=== PATIENT | female | born 1945 | race Caucasian/White ===

== ENCOUNTER 2017-10-17 05:24 | Day surgery (SDC) | payer MEDICARE ==
[2017-10-17] MEDS ORDERED: Dextrose 5%-Lactated Ringers 1,000 ML IV SCH (07:15)
[2017-10-17] MEDS ORDERED: Propofol 200 MG/20 ML SDV ONE (07:18)
[2017-10-17] MEDS ORDERED: fentaNYL 100 MCG/2 ML SDV ONE (07:18)
[2017-10-17 08:17] VITALS: BP 146/74
--- NOTE | 2017-11-18 10:10 | OR ---
DATE OF PROCEDURE: 10/17/2017 PREOPERATIVE DIAGNOSIS: History of gastric bezoar. POSTOPERATIVE DIAGNOSES: 1. No remaining gastric bezoar. 2. Mild antral gastritis. OPERATIVE PROCEDURES: Esophagogastroduodenoscopy with antral biopsies for CLOtest. ANESTHESIA: IV sedation. INDICATION FOR PROCEDURE: The patient is a 72-year-old with history of recently diagnosed bezoar. She has been on an anti-bezoar diet. The plan is to proceed with an upper endoscopy to ascertain whether or not the bezoar has now cleared. Potential risks of the procedure including bleeding, infection, perforation and such were reviewed, and the patient wishes to proceed. DETAILS OF PROCEDURE: The patient was taken to the operating room and placed in a left lateral decubitus position. IV sedation was administered, after which the upper GI endoscope was passed orally through the length of the esophagus and the stomach with retroflexion view of the fundus, thereafter through the pyloric channel, roughly at the junction of the third and fourth portions of the duodenum. The findings included a normal hypopharynx, larynx, upper esophageal sphincter, and esophageal body. At the EG junction, no significant inflammation was noted. A small hiatal hernia was present. Within the stomach, the previously noted bezoar now had entirely cleared. There was some small amount of retained bile, some mild antral gastritis, but without erosions or ulcers present. The pyloric channel and the visualized portion of the duodenum were unremarkable. The scope was then withdrawn into the antrum where biopsies were obtained from the CLOtest. No bleeding from the biopsy sites was seen and the procedure then concluded. The patient was taken to the recovery room in a satisfactory condition. The plan will be to have the patient continue on the present management in terms of anti- bezoar diet and acid blockade. Miguel Mills MD /[id number]
== END 2017-10-17 09:30 | disposition home or self-care (01) ==
LOC: JP.SDS 05:24
PROVIDERS: ATTEND Surgery
DX: K29.50 Unspecified chronic gastritis without bleeding (principal); E11.22 Type 2 diabetes mellitus with diabetic chronic kidney disease; I12.9 Hypertensive chronic kidney disease with stage 1 through stage 4 chronic kidney disease, or unspecified chronic kidney disease; N18.9 Chronic kidney disease, unspecified; I25.10 Atherosclerotic heart disease of native coronary artery without angina pectoris; F32.9 Major depressive disorder, single episode, unspecified; E66.9 Obesity, unspecified; K21.9 Gastro-esophageal reflux disease without esophagitis; J44.9 Chronic obstructive pulmonary disease, unspecified; G47.33 Obstructive sleep apnea (adult) (pediatric); Z88.1 Allergy status to other antibiotic agents; Z88.8 Allergy status to other drugs, medicaments and biological substances; Z87.891 Personal history of nicotine dependence
CPT/HCPCS: 43239; 82962; 87081; J2704; J3010; J7042

== ENCOUNTER 2017-11-04 10:32 | Emergency (ER) | payer MEDICARE ==
--- NOTE | 2017-11-04 13:31 | CR ---
Two-view chest Comparison: 29 October 2016. There is mild cardiac enlargement. Again noted is fullness of the right hilum. The finding is unchang ed. There is likely dilatation of the right pulmonary artery. There are no focal infiltrates. There a re no effusions. Pression: 1. Stable exam. No acute findings.
[2017-11-04] MEDS ORDERED: Sodium Chloride 0.9% 10 ML Syringe FLUSH PRN (14:51)
[2017-11-04] MEDS ORDERED: Furosemide 40 MG/4 ML VIAL IVPUSH ONE (14:52)
[2017-11-04 15:13] VITALS: BP 152/61
--- NOTE | 2017-11-04 15:16 | EDM.PDOC ---
ED HPI GENERAL MEDICAL PROBLEM - General Chief Complaint: Respiratory Problem Stated Complaint: DIFFICULT TIME BREATHING Time Seen by Provider: 11/04/17 15:11 Source of Information: Reports: Patient, Family History Limitations: Reports: No Limitations - History of Present Illness INITIAL COMMENTS - FREE TEXT/NARRATIVE: pt arrived with pain increasing sob. She feels like she has alot of fluid around her nmiddle. She has been off of the bumex for about 3 weeks because her creatnine was high. This has come down to 1.6 which is a vas improvement. Onset: Gradual, Other ( Pt has gained 5-9 lbs. ) Duration: Hour(s): Location: Reports: Chest Associated Symptoms: Reports: Cough, Shortness of Breath denies Pain Score (Numeric/FACES): 0 - Related Data Allergies Allergy/AdvReac Type Severity Reaction Status Date / Time doxycycline Allergy Unknown Cannot Verified 11/04/17 11:09 Remember duloxetine HCl Allergy Unknown Cannot Verified 11/04/17 11:09 [From Cymbalta] Remember atorvastatin Allergy Muscle Verified 11/04/17 11:09 Aches ciprofloxacin Allergy Nausea Verified 11/04/17 11:09 Hqenhoj-Kqv-Pgi Reductase Allergy Muscle Verified 11/04/17 11:09 Inhibitor Aches metoclopramide HCl AdvReac Intermediate Irritabilit Verified 11/04/17 11:09 [From Reglan] y meperidine HCl [From Demerol] AdvReac Unknown Nausea and Verified 11/04/17 11:09 Vomiting Home Meds: Home Meds Cholecalciferol (Vitamin D3) [Vitamin D3] 5,000 units PO WEEKLY 05/29/13 [ History] Metoprolol Tartrate 50 mg PO BID 05/29/13 [History] Sulfamethoxazole/Trimethoprim [Bactrim 400-80 MG] 1 each PO MOWEFR 05/29/13 [ History] rOPINIRole [Requip] 0.5 mg PO BEDTIME 05/29/13 [History] Acetaminophen [Acetaminophen Extra Strength] 1,000 mg PO Q12H PRN 08/13/13 [ History] Calcium Carbonate/Vitamin D3 [Calcium 500-Vit D3 200 Caplet] 1 tab PO TID [History] Omeprazole 40 mg PO BID 12/15/14 [History] QUEtiapine Fumarate [Seroquel] 50 mg PO BEDTIME PRN 02/15/15 [History] Aspirin [Children's Aspirin] 81 mg PO DAILY 04/21/16 [History] Cetirizine [ZyrTEC] 10 mg PO DAILY 04/21/16 [History] Clotrimazole [Clotrimazole 1%] 1 applic TOP BID 04/21/16 [History] Prednisone [IJD: Prednisone] 5 mg PO DAILY 04/21/16 [History] Fluticasone Propionate [Flonase] 2 puff NS DAILY PRN 07/06/16 [History] Mycophenolate Mofetil [Cellcept] 1,000 mg PO BID 07/06/16 [History] amLODIPine [Norvasc] 5 mg PO DAILY 07/06/16 [History] Azithromycin 250 mg PO DAILY 10/29/16 [History] cycloSPORINE [Cyclosporine] 100 mg PO BID 10/29/16 [History] Ondansetron HCl [Zofran] 4 mg PO Q8H PRN 03/07/17 [History] Triamcinolone Acetonide [Kenalog 0.1% Crm] 1 applic TOP QID 03/07/17 [History] Cholecalciferol (Vitamin D3) [Vitamin D3] 2 cap PO BID 10/15/17 [History] Escitalopram [Lexapro] 10 mg PO DAILY 10/15/17 [History] Famotidine 40 mg PO BEDTIME 10/15/17 [History] Insulin Glarg,Human.Rec.Analog [Lantus] 30 unit SUBCUT BEDTIME 10/15/17 [History ] Insulin Lispro [HumaLOG] 5 unit SQ TID 11/04/17 [History] Past Medical History HEENT History: Reports: Cataract, Glaucoma, Other (See Below) Other HEENT History: wears glasses Cardiovascular History: Reports: Heart Failure, Hypertension Respiratory History: Reports: COPD, Sleep Apnea, Other (See Below) Other Respiratory History: lung transplant 2011. 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 when hospitalized at [facility] (2013) Psychiatric History: Reports: Depression Endocrine/Metabolic History: Reports: Diabetes, Type II, IDDM, Osteoporosis, Vitamin D Deficiency Immunologic History: Reports: Solid Organ Transplant Other Immunologic History: lung right side Oncologic (Cancer) History: Reports: Other (See Below) 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 - Infectious Disease History Infectious Disease History: Reports: Chicken Pox, Measles, Meningitis - Past Surgical History HEENT Surgical History: Reports: Cataract Surgery, Other (See Below) Other HEENT Surgeries/Procedures: surgery for glaucoma, retinal repair Cardiovascular Surgical History: Reports: None Respiratory Surgical History: Reports: Other (See Below) Other Respiratory Surgeries/Procedures: lung transplant right GI Surgical History: Reports: Appendectomy, Cholecystectomy, Colonoscopy, EGD, Hernia, Abdominal, Hernia Repair/Other, Quinn Fundoplication, Small Bowel Female Surgical History: Reports: Hysterectomy, Other (See Below) Other Female Surgeries/Procedures: bladder suspension Musculoskeletal Surgical History: Reports: Other (See Below) Other Musculoskeletal Surgeries/Procedures:: left hip pins due to fall fracture 2012 Dermatological Surgical History: Reports: Other (See Below) Social & Family History - Tobacco Use Smoking Status *Q: Former Smoker Years of Tobacco use: 40 Packs/Tins Daily: 1 Used Tobacco, but Quit: Yes Month Tobacco Last Used: sep Second Hand Smoke Exposure: No - Caffeine Use Caffeine Use: Reports: Coffee, Soda - Alcohol Use Days Per Week of Alcohol Use: 0 - Recreational Drug Use Recreational Drug Use: No ED ROS GENERAL - Review of Systems Review Of Systems: See Below Constitutional: Reports: No Symptoms HEENT: Reports: No Symptoms Respiratory: Reports: Shortness of Breath, Other (pt had a rt lung transplant in 2011. She is having increased sob since the bumex was stopped. ) Cardiovascular: Reports: No Symptoms Endocrine: Reports: No Symptoms GI/Abdominal: Reports: No Symptoms : Reports: No Symptoms Musculoskeletal: Reports: No Symptoms, Other ( ankles are swollen. ) Skin: Reports: No Symptoms ED EXAM, GENERAL - Physical Exam Exam: See Below Free Text/Narrative:: pt has fluid retention around her middle and she has increased sob. Exam Limited By: No Limitations General Appearance: Alert, Anxious, Moderate Distress Ears: Normal TMs Nose: Normal Inspection Throat/Mouth: Normal Inspection Head: Atraumatic Neck: Normal Inspection Respiratory/Chest: Decreased Breath Sounds, Rales Cardiovascular: Regular Rate, Rhythm GI/Abdominal: Soft, Non-Tender, Other (pt feels mildly distended. ) (Female) Exam: Deferred Rectal (Female) Exam: Deferred Back Exam: Normal Inspection Extremities: Other (plus 1-2 pitting edema, ) Neurological: Alert, Oriented, Normal Cognition Psychiatric: Anxious Course - Vital Signs Last Recorded V/S: Last Vital Signs Temp 37.5 C 11/04/17 14:22 Pulse 64 11/04/17 15:11 Resp 12 11/04/17 15:11 BP 152/61 H 11/04/17 15:11 Pulse Ox 95 11/04/17 15:11 - Orders/Labs/Meds Orders: Active Orders 24 hr Category Date Time Status Sodium Chloride 0.9% [Saline Flush] Med 11/04/17 14:51 Active 10 ml FLUSH ASDIRECTED PRN Saline Lock Insert [OM.PC] Routine Oth 11/04/17 14:51 Ordered Medication Orders Sodium Chloride (Saline Flush) 10 ml FLUSH ASDIRECTED PRN PRN Reason: Keep Vein Open Last Admin: 11/04/17 15:18 Dose: 10 ml Labs: Laboratory Tests 11/04/17 11/04/17 Range/Units 12:30 12:30 WBC 8.6 (4.5-11.0) K/uL RBC 3.69 (3.30-5.50) M/uL Hgb 9.6 L (12.0-15.0) g/dL Hct 31.1 L (36.0-48.0) % MCV 84 (80-98) fL MCH 26 L (27-31) pg MCHC 31 L (32-36) % Plt Count 242 (150-400) K/uL Neut % (Auto) 74 H (36-66) % Lymph % (Auto) 15 L (24-44) % [place] % (Auto) 10 H (2-6) % Eos % (Auto) 1 L (2-4) % Baso % (Auto) 0 (0-1) % Sodium 139 L (140-148) mmol/L Potassium 4.3 (3.6-5.2) mmol/L Chloride 107 (100-108) mmol/L Carbon Dioxide 23 (21-32) mmol/L Anion Gap 13.3 (5.0-14.0) mmol/L BUN 24 H (7-18) mg/dL Creatinine 1.6 H (0.6-1.0) mg/dL Est Cr Clr Drug Dosing 23.98 mL/min Estimated GFR (MDRD) 32 L (>60) Glucose 166 H (74-106) mg/dL Calcium 8.6 (8.5-10.1) mg/dL Total Bilirubin 0.7 (0.2-1.0) mg/dL AST 12 L (15-37) U/L ALT 28 (12-78) U/L Alkaline Phosphatase 66 (46-116) U/L NT-Pro-B Natriuret Pep 694 H (5-125) pg/mL Total Protein 5.5 L (6.4-8.2) g/dL Albumin 3.1 L (3.4-5.0) g/dL Globulin 2.4 (2.3-3.5) g/dL Albumin/Globulin Ratio 1.3 (1.2-2.2) Meds: Medications Generic Name Dose Route Start Last Admin Trade Name Freq PRN Reason Stop Dose Admin Sodium Chloride 10 ml 11/04/17 14:51 11/04/17 15:18 Saline Flush FLUSH 10 ml ASDIRECTED PRN Administration Keep Vein Open Discontinued Medications Generic Name Dose Route Start Last Admin Trade Name Freq PRN Reason Stop Dose Admin Furosemide 60 mg 11/04/17 14:52 11/04/17 15:08 Lasix IVPUSH 11/04/17 14:53 60 mg ONETIME ONE Administration - Re-Assessments/Exams Free Text/Narrative Re-Assessment/Exam: 11/04/17 15:17 chest xray was unchanged. Her bnp is elevated. The pt was given lasix 60mg iv. 11/04/17 16:47 pt has put out 600cc of urine. She is comfortable with the o2 in place. Departure - Departure Time of Disposition: 16:47 Disposition: Home, Self-Care 01 Condition: Fair Clinical Impression: CHF (congestive heart failure), History of lung transplant - Discharge Information Referrals: Francis Colon MD [Primary Care Provider] - Forms: ED Department Discharge Care Plan Goals: rtc if increased sob. Bumex 1 mg tomorrow, appt with Dr Colon in [place] with Dr Colon. Pt will obtain further ordwers at that point. - My Orders Last 24 Hours: My Active Orders 11/04/17 14:51 Sodium Chloride 0.9% [Saline Flush] 10 ml FLUSH ASDIRECTED PRN Saline Lock Insert [OM.PC] Routine - Assessment/Plan Last 24 Hours: My Active Orders 11/04/17 14:51 Sodium Chloride 0.9% [Saline Flush] 10 ml FLUSH ASDIRECTED PRN Saline Lock Insert [OM.PC] Routine
== END 2017-11-04 17:30 | disposition home or self-care (01) ==
LOC: JP.ED 10:32
DX: I13.0 Hypertensive heart and chronic kidney disease with heart failure and stage 1 through stage 4 chronic kidney disease, or unspecified chronic kidney disease (principal); I15.0 Renovascular hypertension; E11.22 Type 2 diabetes mellitus with diabetic chronic kidney disease; N18.9 Chronic kidney disease, unspecified; E11.40 Type 2 diabetes mellitus with diabetic neuropathy, unspecified; Z88.1 Allergy status to other antibiotic agents; Z88.8 Allergy status to other drugs, medicaments and biological substances; Z79.82 Long term (current) use of aspirin; Z79.899 Other long term (current) drug therapy; Z79.4 Long term (current) use of insulin; Z94.2 Lung transplant status
CPT/HCPCS: 36415; 71046; 80053; 83880; 85025; 96374; 99285; J1940; J7050; 99284

== ENCOUNTER 2021-02-01 13:36 | Emergency (ER) | payer MEDICARE ==
[2021-02-01 14:06] VITALS: BP 147/96; PULSE 69
--- NOTE | 2021-02-01 14:28 | EDM.PDOC ---
ED HPI GENERAL MEDICAL PROBLEM - General Chief Complaint: Back Pain or Injury Stated Complaint: BACK PAIN Time Seen by Provider: 02/01/21 14:22 Source of Information: Reports: Patient History Limitations: Reports: No Limitations Lower Back Pain Score (Numeric/FACES): 10 - Related Data Allergies Allergy/AdvReac Type Severity Reaction Status Date / Time doxycycline Allergy Unknown Cannot Verified 02/01/21 13:54 Remember duloxetine HCl Allergy Unknown Cannot Verified 02/01/21 13:54 [From Cymbalta] Remember atorvastatin Allergy Muscle Verified 02/01/21 13:54 Aches ciprofloxacin Allergy Nausea Verified 02/01/21 13:54 Jwyvcft-Eac-Usw Reductase Allergy Muscle Verified 02/01/21 13:54 Inhibitor Aches metoclopramide HCl AdvReac Intermediate Irritabilit Verified 02/01/21 13:54 [From Reglan] y meperidine HCl [From Demerol] AdvReac Unknown Nausea and Verified 02/01/21 13:54 Vomiting Home Meds: Home Meds Metoprolol Tartrate 75 mg PO BID 05/29/13 [History] Sulfamethoxazole/Trimethoprim [Bactrim 400-80 MG] 1 each PO MOWEFR 05/29/13 [History] rOPINIRole [Requip] 0.25 mg PO BEDTIME 05/29/13 [History] QUEtiapine Fumarate [Seroquel] 50 mg PO BEDTIME 02/15/15 [History] Aspirin [Children's Aspirin] 81 mg PO DAILY 04/21/16 [History] Cetirizine [ZyrTEC] 10 mg PO DAILY 04/21/16 [History] Prednisone [IJD: Prednisone] 5 mg PO DAILY 04/21/16 [History] Fluticasone Propionate [Flonase] 2 spray NS DAILY PRN 07/06/16 [History] amLODIPine [Norvasc] 5 mg PO DAILY 07/06/16 [History] cycloSPORINE [Cyclosporine] 100 mg PO ACBREAKFAST 10/29/16 [History] Famotidine 40 mg PO BEDTIME 10/15/17 [History] Bumetanide [Bumex] 1 tab PO DAILY 02/19/18 [History] Calcium Carbonate/Vitamin D3 [Calcium 500 + Vit D 400] 1 tab PO BID 02/19/18 [History] Isosorbide Mononitrate [Imdur] 30 mg PO DAILY 02/19/18 [History] Nitroglycerin [Nitrostat] 1 tab SL ASDIRECTED PRN 02/19/18 [History] Ascorbic Acid [Vitamin C] 250 mg PO DAILY 08/25/19 [History] Denosumab [Xgeva] 60 mg SQ .EVERY 6 MONTHS 08/25/19 [History] Dulaglutide [Trulicity] 0.5 ml SQ WEEKLY 08/25/19 [History] Ferrous Sulfate 325 mg PO DAILY 08/25/19 [History] Hydrocortisone 1 applic TOP BID 08/25/19 [History] Ketoconazole [Nizoral 2% Crm] 1 applic TOP ASDIRECTED 08/25/19 [History] Lactobacillus Combo No.10 [Probiotic] 1 each PO DAILY 08/25/19 [History] Melatonin 6 mg PO DAILY 08/25/19 [History] Multivitamin with Minerals [Multiple Vitamin] 1 tab PO DAILY 08/25/19 [History] Mycophenolate Sodium [Mycophenolic Acid] 540 mg PO BID 08/25/19 [History] Prochlorperazine [Compazine] 5 mg PO Q6H PRN 08/25/19 [History] Sertraline [Zoloft] 25 mg PO DAILY 08/25/19 [History] cycloSPORINE, Modified [Cyclosporine Modified] 75 mg PO WITHDINNER 08/25/19 [History] traMADol [Ultram] 50 mg PO Q6H PRN 10/13/20 [History] Past Medical History HEENT History: Reports: Cataract, Glaucoma, Other (See Below) Other HEENT History: wears glasses Cardiovascular History: Reports: Heart Failure, Hypertension, Stents Respiratory History: Reports: COPD, Sleep Apnea, Other (See Below) Other Respiratory History: lung transplant 2011. home bipap with O2 Gastrointestinal History: Reports: None Genitourinary History: Reports: Chronic Renal Insuffiency, UTI, Recurrent [employer] History: Reports: , Other (See Below) Other [employer] History: hysterectomy Musculoskeletal History: Reports: Other (See Below) Other Musculoskeletal History: R hip pain, history of fracture vertebrae and fractured clavicle. left hip pain. 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 Dermatologic History: Reports: None - Infectious Disease History Infectious Disease History: Reports: Chicken Pox, Measles, Meningitis - Past Surgical History Head Surgeries/Procedures: Reports: None HEENT Surgical History: Reports: Cataract Surgery, Other (See Below) Other HEENT Surgeries/Procedures: surgery for glaucoma, retinal repair Cardiovascular Surgical History: Reports: None Respiratory Surgical History: Reports: None, Other (See Below) Other Respiratory Surgeries/Procedures: lung transplant right GI Surgical History: Reports: Appendectomy, Cholecystectomy, Colonoscopy, EGD, Hernia, Abdominal, Hernia Repair/Other, Quinn Fundoplication, Small Bowel Other GI Surgeries/Procedures: hx of bezoar Female Surgical History: Reports: Hysterectomy, Other (See Below) Other Female Surgeries/Procedures: bladder suspension Endocrine Surgical History: Reports: None Neurological Surgical History: Reports: None Musculoskeletal Surgical History: Reports: Other (See Below) Other Musculoskeletal Surgeries/Procedures:: left hip pins due to fall fracture 2012 Dermatological Surgical History: Reports: Other (See Below) Social & Family History - Tobacco Use Tobacco Use Status *Q: Never Tobacco User - Caffeine Use Caffeine Use: Reports: Coffee - Recreational Drug Use Recreational Drug Use: No Course - Vital Signs Last Recorded V/S: Last Vital Signs Temp 98.4 F 02/01/21 14:05 Pulse 69 02/01/21 14:05 Resp 16 02/01/21 14:05 BP 147/96 H 02/01/21 14:05 Pulse Ox 91 L 02/01/21 14:05 Departure - Discharge Information Referrals: Carlos Rutherford MD [Primary Care Provider] - Sepsis Event Note (ED) - Evaluation Sepsis Screening Result: No Definite Risk - Focused Exam Vital Signs: Vital Signs Temp Pulse Resp BP Pulse Ox 02/01/21 14:05 98.4 F 69 16 147/96 H 91 L
--- NOTE | 2021-02-01 14:31 | EDM.PDOC ---
ED HPI GENERAL MEDICAL PROBLEM - General Chief Complaint: Back Pain or Injury Stated Complaint: BACK PAIN Time Seen by Provider: 02/01/21 14:22 Source of Information: Reports: Patient, Family History Limitations: Reports: No Limitations - History of Present Illness INITIAL COMMENTS - FREE TEXT/NARRATIVE: 75-year-old female woke up yesterday morning and was sitting up in bed when she felt sudden pain in her lower back. For the past day and a half it has been persistent, intense, hurts to move but is not affecting her urination, bowels, no radiation of symptoms down the legs and no actual trauma. It feels better if she is still. She is taking tramadol but it is not helping. Onset: Sudden Duration: Hour(s): (16 hours ago) Location: Reports: Back (Lumbar back) Associated Symptoms: Reports: No Other Symptoms Lower Back Pain Score (Numeric/FACES): 10 - Related Data Allergies Allergy/AdvReac Type Severity Reaction Status Date / Time doxycycline Allergy Unknown Cannot Verified 02/01/21 13:54 Remember duloxetine HCl Allergy Unknown Cannot Verified 02/01/21 13:54 [From Cymbalta] Remember atorvastatin Allergy Muscle Verified 02/01/21 13:54 Aches ciprofloxacin Allergy Nausea Verified 02/01/21 13:54 [id number] Reductase Allergy Muscle Verified 02/01/21 13:54 Inhibitor Aches metoclopramide HCl AdvReac Intermediate Irritabilit Verified 02/01/21 13:54 [From Reglan] y meperidine HCl [From Demerol] AdvReac Unknown Nausea and Verified 02/01/21 13:54 Vomiting Home Meds: Home Meds Metoprolol Tartrate 75 mg PO BID 05/29/13 [History] Sulfamethoxazole/Trimethoprim [Bactrim 400-80 MG] 1 each PO MOWEFR 05/29/13 [History] rOPINIRole [Requip] 0.25 mg PO BEDTIME 05/29/13 [History] QUEtiapine Fumarate [Seroquel] 50 mg PO BEDTIME 02/15/15 [History] Aspirin [Children's Aspirin] 81 mg PO DAILY 04/21/16 [History] Cetirizine [ZyrTEC] 10 mg PO DAILY 04/21/16 [History] Prednisone [IJD: Prednisone] 5 mg PO DAILY 04/21/16 [History] Fluticasone Propionate [Flonase] 2 spray NS DAILY PRN 07/06/16 [History] amLODIPine [Norvasc] 5 mg PO DAILY 07/06/16 [History] cycloSPORINE [Cyclosporine] 100 mg PO ACBREAKFAST 10/29/16 [History] Famotidine 40 mg PO BEDTIME 10/15/17 [History] Bumetanide [Bumex] 1 tab PO DAILY 02/19/18 [History] Calcium Carbonate/Vitamin D3 [Calcium 500 + Vit D 400] 1 tab PO BID 02/19/18 [History] Isosorbide Mononitrate [Imdur] 30 mg PO DAILY 02/19/18 [History] Nitroglycerin [Nitrostat] 1 tab SL ASDIRECTED PRN 02/19/18 [History] Ascorbic Acid [Vitamin C] 250 mg PO DAILY 08/25/19 [History] Denosumab [Xgeva] 60 mg SQ .EVERY 6 MONTHS 08/25/19 [History] Dulaglutide [Trulicity] 0.5 ml SQ WEEKLY 08/25/19 [History] Ferrous Sulfate 325 mg PO DAILY 08/25/19 [History] Hydrocortisone 1 applic TOP BID 08/25/19 [History] Ketoconazole [Nizoral 2% Crm] 1 applic TOP ASDIRECTED 08/25/19 [History] Lactobacillus Combo No.10 [Probiotic] 1 each PO DAILY 08/25/19 [History] Melatonin 6 mg PO DAILY 08/25/19 [History] Multivitamin with Minerals [Multiple Vitamin] 1 tab PO DAILY 08/25/19 [History] Mycophenolate Sodium [Mycophenolic Acid] 540 mg PO BID 08/25/19 [History] Prochlorperazine [Compazine] 5 mg PO Q6H PRN 08/25/19 [History] Sertraline [Zoloft] 25 mg PO DAILY 08/25/19 [History] cycloSPORINE, Modified [Cyclosporine Modified] 75 mg PO WITHDINNER 08/25/19 [History] traMADol [Ultram] 50 mg PO Q6H PRN 10/13/20 [History] Past Medical History HEENT History: Reports: Cataract, Glaucoma, Other (See Below) Other HEENT History: wears glasses Cardiovascular History: Reports: Heart Failure, Hypertension, Stents Respiratory History: Reports: COPD, Sleep Apnea, Other (See Below) Other Respiratory History: lung transplant 2011. 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 left hip pain. 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 Dermatologic History: Reports: None - Infectious Disease History Infectious Disease History: Reports: Chicken Pox, Measles, Meningitis - Past Surgical History Head Surgeries/Procedures: Reports: None HEENT Surgical History: Reports: Cataract Surgery, Other (See Below) Other HEENT Surgeries/Procedures: surgery for glaucoma, retinal repair Cardiovascular Surgical History: Reports: None Respiratory Surgical History: Reports: None, Other (See Below) Other Respiratory Surgeries/Procedures: lung transplant right GI Surgical History: Reports: Appendectomy, Cholecystectomy, Colonoscopy, EGD, Hernia, Abdominal, Hernia Repair/Other, Quinn Fundoplication, Small Bowel Other GI Surgeries/Procedures: hx of bezoar Female Surgical History: Reports: Hysterectomy, Other (See Below) Other Female Surgeries/Procedures: bladder suspension Endocrine Surgical History: Reports: None Neurological Surgical History: Reports: None Musculoskeletal Surgical History: Reports: Other (See Below) Other Musculoskeletal Surgeries/Procedures:: left hip pins due to fall fracture 2012 Dermatological Surgical History: Reports: Other (See Below) Social & Family History - Tobacco Use Tobacco Use Status *Q: Never Tobacco User - Caffeine Use Caffeine Use: Reports: Coffee - Recreational Drug Use Recreational Drug Use: No ED ROS GENERAL - Review of Systems Review Of Systems: See Below Constitutional: Denies: Fever HEENT: Reports: No Symptoms Respiratory: Reports: Other (Chronic COPD, lung transplant patient. Respiratory symptoms are stable) GI/Abdominal: Denies: Nausea, Vomiting Skin: Reports: Bruising (Bruises easily) Neurological: Reports: Other (No lower extremity radiculopathy). Denies: Headache Psychiatric: Reports: No Symptoms ED EXAM,LOWER BACK PAIN/INJURY - Physical Exam Exam: See Below Exam Limited By: No Limitations General Appearance: Alert, No Apparent Distress, Other (Uncomfortable when moving) Head: Atraumatic Neck: Supple, Non-Tender Respiratory/Chest: Other (Decreased breath sounds, especially on the left but no rales rhonchi or wheezes) Cardiovascular: Regular Rate, Rhythm Back Exam: Vertebral Tenderness (Tender to percussion over L4 and L5) Neurological: Alert, No Motor/Sensory Deficits Psychiatric: Normal Affect, Normal Mood Skin Exam: Warm, Dry Course - Vital Signs Last Recorded V/S: Last Vital Signs Temp 98.4 F 02/01/21 14:05 Pulse 69 02/01/21 14:05 Resp 16 02/01/21 14:05 BP 147/96 H 02/01/21 14:05 Pulse Ox 91 L 02/01/21 14:05 - Orders/Labs/Meds Meds: Medications Discontinued Medications Generic Name Dose Route Start Last Admin Trade Name Piyushq PRN Reason Stop Dose Admin Hydromorphone HCl 1 mg 02/01/21 14:55 02/01/21 15:02 Hydromorphone 1 Mg/Ml Syringe IM 02/01/21 14:56 1 mg ONETIME ONE Administration - Re-Assessments/Exams Free Text/Narrative Re-Assessment/Exam: 02/01/21 14:41 Lumbar spine x-ray was obtained. 02/01/21 14:56 Lumbar spine shows an old stable T12 injury, L1-L5 look normal. I explained this to the patient that it is a soft tissue injury, she was given 1 mg of IM Dilaudid and 10 Percocet to use for extra pain control. Increase activity as tolerated and recheck early next week if not improving satisfactorily. 02/01/21 16:29 After discussing treatment plan with the daughter, it was decided against the Percocet because of a anxiety reaction or confusion she had from the medication last time so she was given 15 tramadol because she was "almost out". A [employer] search showed she had 90 a month and a half ago and does not get frequent refills. Departure - Departure Time of Disposition: 15:44 Disposition: Home, Self-Care 01 Clinical Impression: Acute low back pain Qualifiers: Back pain laterality: midline Sciatica presence: without sciatica Qualified Code(s): M54.5 - Low back pain - Discharge Information Instructions: Acute Back Pain, Adult Referrals: Carlos Rutherford MD [Primary Care Provider] - Forms: ED Department Discharge Care Plan Goals: This likely is a soft tissue injury such as a ligament or tendon, your bones look healthy. Increase activity as tolerated and use Percocet for extra pain control if needed especially when trying to rest. Consider rechecking early next week if not improving satisfactorily, or sooner if worsening such as incontinence or symptoms down the legs as we discussed. Sepsis Event Note (ED) - Evaluation Sepsis Screening Result: No Definite Risk - Focused Exam Vital Signs: Vital Signs Temp Pulse Resp BP Pulse Ox 02/01/21 14:05 98.4 F 69 16 147/96 H 91 L
[2021-02-01] MEDS ORDERED: HYDROmorphone 1 MG/ML Syringe IM ONE (14:55)
--- NOTE | 2021-02-01 15:36 | CRLCR ---
Indication: Back Pain Comparison: Two-view lumbar spine October 05, 2010 Technique: AP and lateral views lumbar spine were obtained Findings: There is interval development of somewhat age indeterminate endplate deformities of the superior T12 and L1 levels otherwise, the vertebral body heights are grossly preserved and satisfactory alignment. There is mild multilevel degenerative disc disease with disc height loss and marginal osteophyte formation. There is moderate facet arthrosis. There is a nonspecific bowel gas pattern. Impression: Interval development of age indeterminate endplate deformities of the superior T12 and L1 levels otherwise no displaced fracture. Recommend follow-up with MRI to assess for subtle marrow edema and acuity of endplate deformities. Dictated by Finesse Lara MD @ 02/01/2021 3:34:[address] Finesse Lara @ Feb 01 2021 3:34PM
== END 2021-02-01 15:44 | disposition home or self-care (01) ==
LOC: JP.ED 13:36
DX: M54.5 Low back pain (principal); I13.0 Hypertensive heart and chronic kidney disease with heart failure and stage 1 through stage 4 chronic kidney disease, or unspecified chronic kidney disease; I50.9 Heart failure, unspecified; E11.22 Type 2 diabetes mellitus with diabetic chronic kidney disease; E11.42 Type 2 diabetes mellitus with diabetic polyneuropathy; J44.9 Chronic obstructive pulmonary disease, unspecified; N18.9 Chronic kidney disease, unspecified; Z88.1 Allergy status to other antibiotic agents; Z88.8 Allergy status to other drugs, medicaments and biological substances; Z88.5 Allergy status to narcotic agent; Z79.82 Long term (current) use of aspirin
CPT/HCPCS: 72100; 96372; 99283; J1170

== ENCOUNTER 2021-03-04 10:37 | Emergency (ER) | payer MEDICARE ==
[2021-03-04 11:02] VITALS: BP 166/78; PULSE 70
[2021-03-04] MEDS ORDERED: Sodium Chloride 0.9% 10 ML Syringe FLUSH PRN (11:19)
--- NOTE | 2021-03-04 11:26 | EDM.PDOC ---
ED HPI GENERAL MEDICAL PROBLEM - General Chief Complaint: Back Pain or Injury Stated Complaint: BACK PAIN Time Seen by Provider: 03/04/21 11:19 Source of Information: Reports: Patient, RN History Limitations: Reports: No Limitations - History of Present Illness INITIAL COMMENTS - FREE TEXT/NARRATIVE: Ava is 75 year old male whom present to ER for evaluation of right flank pain which started this am. Ava reports urinary frequency and urgency last week which has improved this week. Ava report pain in right flank which she noted upon awakening and too severe to move and is different that typical chronic pain pain and in different locations. Patient is on Tylenol and Tramadol chronically for pain management which keeps the pain tolerable but not controlled well. Middle Back Pain Score (Numeric/FACES): 9 - Related Data Allergies Allergy/AdvReac Type Severity Reaction Status Date / Time doxycycline Allergy Unknown Cannot Verified 03/04/21 11:06 Remember duloxetine HCl Allergy Unknown Cannot Verified 03/04/21 11:06 [From Cymbalta] Remember atorvastatin Allergy Muscle Verified 03/04/21 11:06 Aches ciprofloxacin Allergy Nausea Verified 03/04/21 11:06 prochlorperazine Allergy Dizziness Verified 03/04/21 11:06 [From Compazine] [id number] Reductase Allergy Muscle Verified 03/04/21 11:06 Inhibitor Aches metoclopramide HCl AdvReac Intermediate Irritabilit Verified 03/04/21 11:06 [From Reglan] y meperidine HCl [From Demerol] AdvReac Unknown Nausea and Verified 03/04/21 11:06 Vomiting Home Meds: Home Meds Metoprolol Tartrate 75 mg PO DAILY 05/29/13 [History] Sulfamethoxazole/Trimethoprim [Bactrim 400-80 MG] 1 each PO MOWEFR 05/29/13 [History] rOPINIRole [Requip] 0.25 mg PO BEDTIME 05/29/13 [History] QUEtiapine Fumarate [Seroquel] 50 mg PO BEDTIME 02/15/15 [History] Aspirin [Children's Aspirin] 81 mg PO DAILY 04/21/16 [History] Cetirizine [ZyrTEC] 10 mg PO DAILY 04/21/16 [History] Prednisone [IJD: Prednisone] 5 mg PO DAILY 04/21/16 [History] Fluticasone Propionate [Flonase] 2 spray NS DAILY PRN 07/06/16 [History] amLODIPine [Norvasc] 5 mg PO DAILY 07/06/16 [History] cycloSPORINE [Cyclosporine] 100 mg PO ACBREAKFAST 10/29/16 [History] Famotidine 40 mg PO BEDTIME 10/15/17 [History] Bumetanide [Bumex] 1 tab PO DAILY 02/19/18 [History] Calcium Carbonate/Vitamin D3 [Calcium 500 + Vit D 400] 1 tab PO BID 02/19/18 [History] Isosorbide Mononitrate [Imdur] 30 mg PO DAILY 02/19/18 [History] Nitroglycerin [Nitrostat] 1 tab SL ASDIRECTED PRN 02/19/18 [History] Ascorbic Acid [Vitamin C] 250 mg PO DAILY 08/25/19 [History] Denosumab [Xgeva] 60 mg SQ .EVERY 6 MONTHS 08/25/19 [History] Dulaglutide [Trulicity] 0.5 ml SQ WEEKLY 08/25/19 [History] Ferrous Sulfate 325 mg PO DAILY 08/25/19 [History] Hydrocortisone 1 applic TOP BID 08/25/19 [History] Ketoconazole [Nizoral 2% Crm] 1 applic TOP ASDIRECTED 08/25/19 [History] Lactobacillus Combo No.10 [Probiotic] 1 each PO DAILY 08/25/19 [History] Melatonin 6 mg PO DAILY 08/25/19 [History] Multivitamin with Minerals [Multiple Vitamin] 1 tab PO DAILY 08/25/19 [History] Mycophenolate Sodium [Mycophenolic Acid] 540 mg PO BID 08/25/19 [History] Sertraline [Zoloft] 25 mg PO DAILY 08/25/19 [History] cycloSPORINE, Modified [Cyclosporine Modified] 75 mg PO WITHDINNER 08/25/19 [History] traMADol [Ultram] 50 mg PO Q6H PRN 10/13/20 [History] Metoprolol Tartrate [Lopressor] 50 mg PO BEDTIME 02/14/21 [History] Hydrocodone/Acetaminophen [Hydrocodon-Acetaminophen 5-325] 0.5 - 1 each PO Q6H PRN 3 Days #10 tablet 03/04/21 [Rx] Past Medical History HEENT History: Reports: Cataract, Glaucoma, Other (See Below) Other HEENT History: wears glasses Cardiovascular History: Reports: Heart Failure, Hypertension, Stents Respiratory History: Reports: COPD, Sleep Apnea, Other (See Below) Other Respiratory History: lung transplant 2011. 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 left hip pain. 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 Dermatologic History: Reports: None - Infectious Disease History Infectious Disease History: Reports: Chicken Pox, Measles, Meningitis - Past Surgical History Head Surgeries/Procedures: Reports: None HEENT Surgical History: Reports: Cataract Surgery, Other (See Below) Other HEENT Surgeries/Procedures: surgery for glaucoma, retinal repair Cardiovascular Surgical History: Reports: None Respiratory Surgical History: Reports: None, Other (See Below) Other Respiratory Surgeries/Procedures: lung transplant right GI Surgical History: Reports: Appendectomy, Cholecystectomy, Colonoscopy, EGD, Hernia, Abdominal, Hernia Repair/Other, Quinn Fundoplication, Small Bowel Other GI Surgeries/Procedures: hx of bezoar Female Surgical History: Reports: Hysterectomy, Other (See Below) Other Female Surgeries/Procedures: bladder suspension Endocrine Surgical History: Reports: None Neurological Surgical History: Reports: None Musculoskeletal Surgical History: Reports: Other (See Below) Other Musculoskeletal Surgeries/Procedures:: left hip pins due to fall fracture 2012 Dermatological Surgical History: Reports: Other (See Below) Social & Family History - Tobacco Use Tobacco Use Status *Q: Never Tobacco User - Caffeine Use Caffeine Use: Reports: Coffee ED ROS GENERAL - Review of Systems Review Of Systems: Comprehensive ROS is negative, except as noted in HPI. ED EXAM, GENERAL - Physical Exam Exam: See Below Exam Limited By: No Limitations General Appearance: Alert, WD/WN, Moderate Distress (Right back/flank pain ) Eye Exam: Bilateral Eye: EOMI, Normal Inspection Ears: Normal External Exam, Hearing Grossly Normal Nose: Normal Inspection Throat/Mouth: Normal Voice, No Airway Compromise Respiratory/Chest: No Respiratory Distress, Lungs Clear, Normal Breath Sounds Cardiovascular: Normal Peripheral Pulses, Regular Rate, Rhythm GI/Abdominal: Normal Bowel Sounds, Soft, Non-Tender. No: Guarding, Rigid, Rebound, Abnormal Bowel Sounds Back Exam: Normal Inspection, CVA Tenderness (R), Paraspinal Tenderness (baseline per patient involving right and left flank pain ). No: CVA Tenderness (L) Extremities: Normal Inspection, Normal Range of Motion Neurological: Alert, Oriented, CN II-XII Intact Psychiatric: Normal Affect, Normal Mood Skin Exam: Warm, Dry, Intact, Normal Color Course - Vital Signs Last Recorded V/S: Last Vital Signs Temp 36.3 C 03/04/21 11:12 Pulse 70 03/04/21 11:12 Resp 16 03/04/21 11:12 BP 166/78 H 03/04/21 11:12 Pulse Ox 94 L 03/04/21 11:12 - Orders/Labs/Meds Orders: Active Orders 24 hr Category Date Time Status Peripheral IV Care [RC] . DIRECTED Care 03/04/21 11:19 Active Sodium Chloride 0.9% [Saline Flush] Med 03/04/21 11:19 Active 10 ml FLUSH ASDIRECTED PRN Peripheral IV Insertion Adult [OM.PC] Urgent Oth 03/04/21 11:19 Ordered Medication Orders Sodium Chloride (Sodium Chloride 0.9% 10 Ml Syringe) 10 ml FLUSH ASDIRECTED PRN PRN Reason: Keep Vein Open Last Admin: 03/04/21 11:39 Dose: 10 ml Documented by: MINERVA Labs: Laboratory Tests 03/04/21 03/04/21 03/04/21 Range/Units 11:19 11:45 11:45 WBC 9.3 (4.5-11.0) K/uL RBC 4.66 (3.30-5.50) M/uL Hgb 13.0 D (12.0-15.0) g/dL Hct 40.7 (36.0-48.0) % MCV 87 (80-98) fL MCH 28 (27-31) pg MCHC 32 (32-36) % Plt Count 215 (150-400) K/uL Neut % (Auto) 78.7 H (36-66) % Lymph % (Auto) 13.2 L (24-44) % [place] % (Auto) 7.3 H (2-6) % Eos % (Auto) 0.6 L (2-4) % Baso % (Auto) 0.2 (0-1) % Sodium 141 (140-148) mmol/L Potassium 4.2 (3.6-5.2) mmol/L Chloride 102 (100-108) mmol/L Carbon Dioxide 28 (21-32) mmol/L Anion Gap 11.0 (5.0-14.0) mmol/L BUN 47 H D (7-18) mg/dL Creatinine 2.0 H (0.6-1.0) mg/dL Est Cr Clr Drug Dosing 17.46 mL/min Estimated GFR (MDRD) 24 L (>60) Glucose 157 H (74-106) mg/dL Calcium 9.1 (8.5-10.1) mg/dL Total Bilirubin 0.7 (0.2-1.0) mg/dL AST 6 L (15-37) U/L ALT 25 (12-78) U/L Alkaline Phosphatase 92 (46-116) U/L Total Protein 5.5 L (6.4-8.2) g/dL Albumin 3.3 L (3.4-5.0) g/dL Globulin 2.2 L (2.3-3.5) g/dL Albumin/Globulin Ratio 1.5 (1.2-2.2) Urine Color Yellow (YELLOW) Urine Appearance Clear (CLEAR) Urine pH 5.0 (5.0-8.0) Ur Specific [place] 1.015 (1.008-1.030) Urine Protein Negative (NEGATIVE) mg/dL Urine Glucose (UA) Negative (NEGATIVE) mg/dL Urine Ketones Negative (NEGATIVE) mg/dL Urine Occult Blood Negative (NEGATIVE) Urine Nitrite Negative (NEGATIVE) Urine Bilirubin Negative (NEGATIVE) Urine Urobilinogen 0.2 (0.2-1.0) EU/dL Ur Leukocyte Esterase Negative (NEGATIVE) Urine RBC Not seen (0-5) Urine WBC 0-5 (0-5) Ur Epithelial Cells Moderate Amorphous Sediment Not seen Urine Bacteria Few Urine Mucus Few Meds: Medications Generic Name Dose Route Start Last Admin Trade Name Troy PRN Reason Stop Dose Admin Sodium Chloride 10 ml 03/04/21 11:19 03/04/21 11:39 Sodium Chloride 0.9% 10 Ml Syringe FLUSH 10 ml ASDIRECTED PRN Administration Keep Vein Open Discontinued Medications Generic Name Dose Route Start Last Admin Trade Name Troy PRN Reason Stop Dose Admin Hydromorphone HCl 0.5 mg 03/04/21 11:27 03/04/21 11:40 Hydromorphone 0.5 Mg/0.5 Ml Syringe IVPUSH 03/04/21 11:28 0.5 mg ONETIME ONE Administration Lidocaine 700 mg 03/04/21 13:11 03/04/21 13:37 Lidocaine 5% 700 Mg Patch TOP 03/04/21 13:12 700 mg ONETIME ONE Administration - Re-Assessments/Exams Free Text/Narrative Re-Assessment/Exam: 03/04/21 11:37 EKG reviewed from October 18, 2016 NSR HR 65 indicated QTc 455 before zofran given for nausea during ER visit. Allergy to Demerol and Reglan intolerance noted in chart. 03/04/21 13:11 Laboratory results reviewed noting no signs of infection, urine negative for blood or signs of infection. Kidney function insufficiency noted but no acute change. CT abd/pelvis w/o contrast showed no right ureteral stone or perinephric stranding per my reading. Images read by radiologist with no acute concerning findings but incidental annotation of T12-L1 compression which may explain new right flank pain which radiates around to front of abdomen. Urine culture added to testing for further evaluation. If UC positive, patient may required antibiotics for treatment urinary tract infection. Update patient regarding findings and discuss pain management plan for weekend and further discussion with PCP this coming week recommended. 03/04/21 13:29 Recommend Salonpas patch to site of most severe pain every am and off at night or per package insert. Basye 1/2 tablet for moderate to severe pain with caution taking additional Tylenol and no Tramadol within 6-8 hours of taking Basye. 03/04/21 13:40 [place] [employer] search completed and verified recent Medication prescription for continued recurrent pain management. Departure - Departure Time of Disposition: 13:31 Disposition: Home, Self-Care 01 Clinical Impression: Compression fracture, Flank pain, acute, Chronic pain - Discharge Information Prescriptions: Hydrocodone/Acetaminophen [Hydrocodon-Acetaminophen 5-325] 0.5 - 1 each PO Q6H PRN 3 Days #10 tablet PRN Reason: Pain Instructions: Muscle Strain, [id number], What You Need to Know About Chronic Back Pain, Flank Pain, Adult, Managing Pain Without Opioids, Chronic Back Pain, Abdominal Pain, Adult Referrals: Carlos Rutherford MD [Primary Care Provider] - Forms: ED Department Discharge Sepsis Event Note (ED) - Evaluation Sepsis Screening Result: No Definite Risk - Focused Exam Vital Signs: Vital Signs Temp Pulse Resp BP Pulse Ox 03/04/21 11:12 36.3 C 70 16 166/78 H 94 L 03/04/21 11:01 36.3 C 70 16 166/78 H 94 L - My Orders Last 24 Hours: My Active Orders 03/04/21 11:19 Peripheral IV Care [RC] . DIRECTED Sodium Chloride 0.9% [Saline Flush] 10 ml FLUSH ASDIRECTED PRN Peripheral IV Insertion Adult [OM.PC] Urgent - Assessment/Plan Last 24 Hours: My Active Orders 03/04/21 11:19 Peripheral IV Care [RC] . DIRECTED Sodium Chloride 0.9% [Saline Flush] 10 ml FLUSH ASDIRECTED PRN Peripheral IV Insertion Adult [OM.PC] Urgent
[2021-03-04] MEDS ORDERED: HYDROmorphone 0.5 MG/0.5 ML Syringe IVPUSH ONE (11:27)
--- NOTE | 2021-03-04 13:00 | CRLCT ---
For Patients: As a result of the Century Cures Act, medical imaging exams and procedure reports are released immediately into your electronic medical record. You may view this report before your referring provider. If you have questions, please contact your health care provider. Indication: Right flank pain Technique: Noncontrast CT abdomen and pelvis Comparison: CT abdomen and pelvis dated 05/30/2020 (only partial study available for comparison ) FINDINGS: The heart is enlarged pacer study atelectasis Splenic granulomas. Unenhanced liver is unremarkable cholecystectomy biliary dilatation No abdominal aortic aneurysm. Low-density lesions in the left kidney incompletely assessed. Left lateral sub centimeters slightly dense lesion series 5, image 77 incompletely assessed but could be related to hyperdense cyst or mass. All Previous slightly heterogeneous lesion in the pancreatic body/tail appears decreased in size now measuring 2.7 x 2.5 centimeters when remeasured at similar locations on the prior scan measured 4 x 3.5 centimeters. No pancreatic ductal dilatation. Diverticulosis. Abundant stool in the colon no obstruction. Sigmoid anastomosis. Rounded fat density area in the pelvis is unchanged from the prior study probably reflects an area of fibrous scarring/fat necrosis. Urinary bladder unremarkable. Prior ventral hernia repair changes Mild compression of T12 and L1. No suspicious bony lesions. Impression: 1. No acute findings in the abdomen pelvis. No renal calculi or hydronephrosis. 2. Decreased size of slightly heterogeneous lesion along the pancreatic body tail from the prior study. 3. Small exophytic slightly dense lesion on the left lateral kidney could be related to hyperdense cyst or solid lesion. Could consider ultrasound as an initial evaluation. Please note that all CT scans at this facility use dose modulation, iterative reconstruction, and/or weight-based dosing when appropriate to reduce radiation dose to as low as reasonably achievable. Dictated by Taty Baxter MD @ 03/04/2021 12:59:[address] Taty Baxter @ Mar 04 2021 12:59PM
[2021-03-04] MEDS ORDERED: Lidocaine 5% 700 MG Patch TOP ONE (13:11)
== END 2021-03-04 14:10 | disposition home or self-care (01) ==
LOC: JP.ED 10:37
DX: S22.080A Wedge compression fracture of T11-T12 vertebra, initial encounter for closed fracture (principal); S32.010A Wedge compression fracture of first lumbar vertebra, initial encounter for closed fracture; J44.9 Chronic obstructive pulmonary disease, unspecified; I13.0 Hypertensive heart and chronic kidney disease with heart failure and stage 1 through stage 4 chronic kidney disease, or unspecified chronic kidney disease; E11.22 Type 2 diabetes mellitus with diabetic chronic kidney disease; N18.9 Chronic kidney disease, unspecified; I50.9 Heart failure, unspecified; E11.40 Type 2 diabetes mellitus with diabetic neuropathy, unspecified; Z79.82 Long term (current) use of aspirin; Z79.899 Other long term (current) drug therapy; Z88.1 Allergy status to other antibiotic agents; Z88.8 Allergy status to other drugs, medicaments and biological substances; Z88.5 Allergy status to narcotic agent; W22.8XXA Striking against or struck by other objects, initial encounter
CPT/HCPCS: 36415; 74176; 80053; 81001; 85025; 96374; 99284; 99284-25; A9270-GY; J1170

== ENCOUNTER 2021-03-08 14:14 | Emergency (ER) | payer MEDICARE ==
[2021-03-08 14:34] VITALS: PULSE 72
[2021-03-08] MEDS ORDERED: Lidocaine 5% 700 MG Patch TOP ONE (14:39)
[2021-03-08] MEDS ORDERED: HYDROmorphone 0.5 MG/0.5 ML Syringe IM ONE (14:46)
--- NOTE | 2021-03-08 14:57 | EDM.PDOC ---
ED HPI GENERAL MEDICAL PROBLEM - General Chief Complaint: Back Pain or Injury Stated Complaint: BACK SPASMS Time Seen by Provider: 03/08/21 14:52 Source of Information: Reports: Patient, Old Records, RN History Limitations: Reports: No Limitations - History of Present Illness INITIAL COMMENTS - FREE TEXT/NARRATIVE: 75 yo female with a recent dx of a compression fx in her mid back had an MRI today of her T and L spine as ordered by the clinic. She came right to the ER from her study due to pain out of control. No bowel or bladder incontinence. No numbness or weakness of her legs. 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: Other (see below) (none) Back Pain Score (Numeric/FACES): 10 - Related Data Allergies Allergy/AdvReac Type Severity Reaction Status Date / Time doxycycline Allergy Unknown Cannot Verified 03/08/21 14:26 Remember duloxetine HCl Allergy Unknown Cannot Verified 03/08/21 14:26 [From Cymbalta] Remember atorvastatin Allergy Muscle Verified 03/08/21 14:26 Aches ciprofloxacin Allergy Nausea Verified 03/08/21 14:26 prochlorperazine Allergy Dizziness Verified 03/08/21 14:26 [From Compazine] [id number] Reductase Allergy Muscle Verified 03/08/21 14:26 Inhibitor Aches metoclopramide HCl AdvReac Intermediate Irritabilit Verified 03/08/21 14:26 [From Reglan] y meperidine HCl [From Demerol] AdvReac Unknown Nausea and Verified 03/08/21 14:26 Vomiting Home Meds: Home Meds Metoprolol Tartrate 75 mg PO DAILY 05/29/13 [History] Sulfamethoxazole/Trimethoprim [Bactrim 400-80 MG] 1 each PO MOWEFR 05/29/13 [History] rOPINIRole [Requip] 0.25 mg PO BEDTIME 05/29/13 [History] QUEtiapine Fumarate [Seroquel] 50 mg PO BEDTIME 02/15/15 [History] Aspirin [Children's Aspirin] 81 mg PO DAILY 04/21/16 [History] Cetirizine [ZyrTEC] 10 mg PO DAILY 04/21/16 [History] Prednisone [IJD: Prednisone] 5 mg PO DAILY 04/21/16 [History] Fluticasone Propionate [Flonase] 2 spray NS DAILY PRN 07/06/16 [History] amLODIPine [Norvasc] 5 mg PO DAILY 07/06/16 [History] cycloSPORINE [Cyclosporine] 100 mg PO ACBREAKFAST 10/29/16 [History] Famotidine 40 mg PO BEDTIME 10/15/17 [History] Bumetanide [Bumex] 1 tab PO DAILY 02/19/18 [History] Calcium Carbonate/Vitamin D3 [Calcium 500 + Vit D 400] 1 tab PO BID 02/19/18 [History] Isosorbide Mononitrate [Imdur] 30 mg PO DAILY 02/19/18 [History] Nitroglycerin [Nitrostat] 1 tab SL ASDIRECTED PRN 02/19/18 [History] Ascorbic Acid [Vitamin C] 250 mg PO DAILY 08/25/19 [History] Denosumab [Xgeva] 60 mg SQ .EVERY 6 MONTHS 08/25/19 [History] Dulaglutide [Trulicity] 0.5 ml SQ WEEKLY 08/25/19 [History] Ferrous Sulfate 325 mg PO DAILY 08/25/19 [History] Hydrocortisone 1 applic TOP BID 08/25/19 [History] Ketoconazole [Nizoral 2% Crm] 1 applic TOP ASDIRECTED 08/25/19 [History] Lactobacillus Combo No.10 [Probiotic] 1 each PO DAILY 08/25/19 [History] Melatonin 6 mg PO DAILY 08/25/19 [History] Multivitamin with Minerals [Multiple Vitamin] 1 tab PO DAILY 08/25/19 [History] Mycophenolate Sodium [Mycophenolic Acid] 540 mg PO BID 08/25/19 [History] Sertraline [Zoloft] 25 mg PO DAILY 08/25/19 [History] cycloSPORINE, Modified [Cyclosporine Modified] 75 mg PO WITHDINNER 08/25/19 [His tory] traMADol [Ultram] 50 mg PO Q6H PRN 10/13/20 [History] Metoprolol Tartrate [Lopressor] 50 mg PO BEDTIME 02/14/21 [History] Hydrocodone/Acetaminophen [Hydrocodon-Acetaminophen 5-325] 0.5 - 1 each PO Q4H PRN #12 tablet 03/08/21 [Rx] Past Medical History HEENT History: Reports: Cataract, Glaucoma, Other (See Below) Other HEENT History: wears glasses Cardiovascular History: Reports: Heart Failure, Hypertension, Stents Respiratory History: Reports: COPD, Sleep Apnea, Other (See Below) Other Respiratory History: lung transplant 2011. 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 left hip pain. 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 Dermatologic History: Reports: None - Infectious Disease History Infectious Disease History: Reports: Chicken Pox, Measles, Meningitis - Past Surgical History Head Surgeries/Procedures: Reports: None HEENT Surgical History: Reports: Cataract Surgery, Other (See Below) Other HEENT Surgeries/Procedures: surgery for glaucoma, retinal repair Cardiovascular Surgical History: Reports: None Respiratory Surgical History: Reports: None, Other (See Below) Other Respiratory Surgeries/Procedures: lung transplant right GI Surgical History: Reports: Appendectomy, Cholecystectomy, Colonoscopy, EGD, Hernia, Abdominal, Hernia Repair/Other, Quinn Fundoplication, Small Bowel Other GI Surgeries/Procedures: hx of bezoar Female Surgical History: Reports: Hysterectomy, Other (See Below) Other Female Surgeries/Procedures: bladder suspension Endocrine Surgical History: Reports: None Neurological Surgical History: Reports: None Musculoskeletal Surgical History: Reports: Other (See Below) Other Musculoskeletal Surgeries/Procedures:: left hip pins due to fall fracture 2012 Dermatological Surgical History: Reports: Other (See Below) Social & Family History - Tobacco Use Tobacco Use Status *Q: Never Tobacco User Second Hand Smoke Exposure: No - Caffeine Use Caffeine Use: Reports: Coffee - Recreational Drug Use Recreational Drug Use: No ED ROS GENERAL - Review of Systems Review Of Systems: See Below Constitutional: Reports: No Symptoms HEENT: Reports: No Symptoms Respiratory: Reports: No Symptoms Cardiovascular: Reports: No Symptoms GI/Abdominal: Reports: No Symptoms : Reports: No Symptoms Musculoskeletal: Reports: Back Pain Skin: Reports: No Symptoms Neurological: Reports: No Symptoms ED EXAM,LOWER BACK PAIN/INJURY - Physical Exam Exam: See Below Exam Limited By: No Limitations General Appearance: Alert, WD/WN, No Apparent Distress Eye Exam: Bilateral Eye: Normal Inspection Ears: Normal External Exam, Normal Canal, Hearing Grossly Normal Nose: Normal Inspection, No Blood Throat/Mouth: Normal Inspection, Normal Lips, Normal Oropharynx, Normal Voice, No Airway Compromise Head: Atraumatic, Normocephalic Neck: Normal Inspection Respiratory/Chest: No Respiratory Distress, Lungs Clear, Normal Breath Sounds, No Accessory Muscle Use Cardiovascular: Regular Rate, Rhythm, No Edema GI/Abdominal: Soft, Non-Tender Back Exam: Normal Inspection, Vertebral Tenderness. No: CVA Tenderness (R), CVA Tenderness (L) Extremities: Normal Inspection, Normal Range of Motion, Non-Tender, No Pedal Edema Neurological: Alert, Normal Mood/Affect, Normal Dorsiflexion, CN II-XII Intact, No Motor/Sensory Deficits, Oriented x 3 Psychiatric: Normal Affect, Normal Mood Skin Exam: Warm, Dry, Intact, Normal Color, No Rash #1 Interpretation EKG Date: 03/08/21 Time: 16:10 Rhythm: NSR Rate (Beats/Min): 69 Whitmer: Normal P-Wave: Present QRS: Normal ST-T: Normal QT: Normal Comparison: No Change Course - Vital Signs Last Recorded V/S: Last Vital Signs Temp 36.4 C 03/08/21 14:33 Pulse 72 03/08/21 14:33 Resp 16 03/08/21 14:33 BP 155/86 H 03/08/21 14:33 Pulse Ox 93 L 03/08/21 14:33 - Orders/Labs/Meds Orders: Active Orders 24 hr Category Date Time Status EKG Documentation Completion [RC] ASDIRECTED Care 03/08/21 16:13 Active fentaNYL [Duragesic] Med 03/08/21 15:00 Active 12 mcg TRDERM Q72H EKG 12 Lead [EK] Routine Ther 03/08/21 16:13 Ordered Medication Orders Fentanyl (Fentanyl 12 Mcg/Hr Transdermal Patch) 12 mcg TRDERM Q72H [facility] Last Admin: 03/08/21 14:57 Dose: 12 mcg Documented by: PADMINI Meds: Medications Generic Name Dose Route Start Last Admin Trade Name Freq PRN Reason Stop Dose Admin Fentanyl 12 mcg 03/08/21 15:00 03/08/21 14:57 Fentanyl 12 Mcg/Hr Transdermal Patch TRDERM 12 mcg Q72H [facility] Administration Discontinued Medications Generic Name Dose Route Start Last Admin Trade Name Freq PRN Reason Stop Dose Admin Hydromorphone HCl 0.5 mg 03/08/21 14:46 03/08/21 15:01 Hydromorphone 0.5 Mg/0.5 Ml Syringe IM 03/08/21 14:47 0.5 mg ONETIME ONE Administration Lidocaine 700 mg 03/08/21 14:39 03/08/21 14:47 Lidocaine 5% 700 Mg Patch TOP 03/08/21 14:40 700 mg ONETIME ONE Administration Departure - Departure Time of Disposition: 16:25 Disposition: Home, Self-Care 01 Condition: Fair Clinical Impression: Compression fracture of spine Qualifiers: Encounter type: initial encounter Fracture of vertebra location: thoracic Thoracic vertebra fracture level: T12 Qualified Code(s): S22.080A - Wedge compression fracture of T11-T12 vertebra, initial encounter for closed fracture Low back pain Qualifiers: Chronicity: chronic Back pain laterality: bilateral Sciatica presence: unspecified whether sciatica present Qualified Code(s): M54.5 - Low back pain - Discharge Information *PRESCRIPTION DRUG MONITORING PROGRAM REVIEWED*: No *COPY OF PRESCRIPTION DRUG MONITORING REPORT IN PATIENT BRYAN: No Instructions: Spinal Compression Fracture Referrals: Carlos Rutherford MD [Primary Care Provider] - Forms: ED Department Discharge Additional Instructions: F/U with Leonora and/or your family doctor soon to discuss fixing your back and pain control issues. You may take acetaminophen and/or ibuprofen for additional pain relief as needed. Make sure someone stays with you to prevent a fall and no driving. Keep fluids and fiber intake up to prevent constipation. If you are taking the hydrocodone/APAP you need to reduce the amt of acetaminophen you take to avoid taking too much. Sepsis Event Note (ED) - Evaluation Sepsis Screening Result: No Definite Risk - Focused Exam Vital Signs: Vital Signs Temp Pulse Resp BP Pulse Ox 03/08/21 14:33 36.4 C 72 16 155/86 H 93 L - My Orders Last 24 Hours: My Active Orders 03/08/21 15:00 fentaNYL [Duragesic] 12 mcg TRDERM Q72H 03/08/21 16:13 EKG Documentation Completion [RC] ASDIRECTED EKG 12 Lead [EK] Routine - Assessment/Plan Last 24 Hours: My Active Orders 03/08/21 15:00 fentaNYL [Duragesic] 12 mcg TRDERM Q72H 03/08/21 16:13 EKG Documentation Completion [RC] ASDIRECTED EKG 12 Lead [EK] Routine
[2021-03-08] MEDS ORDERED: fentaNYL 12 MCG/HR Transdermal Patch TRDERM SCH (15:00)
[2021-03-08 16:38] VITALS: BP 150/73
== END 2021-03-08 17:23 | disposition home or self-care (01) ==
LOC: JP.ED 14:14
DX: S22.080A Wedge compression fracture of T11-T12 vertebra, initial encounter for closed fracture (principal); M54.5 Low back pain; I13.0 Hypertensive heart and chronic kidney disease with heart failure and stage 1 through stage 4 chronic kidney disease, or unspecified chronic kidney disease; N18.9 Chronic kidney disease, unspecified; I50.9 Heart failure, unspecified; J44.9 Chronic obstructive pulmonary disease, unspecified; E11.9 Type 2 diabetes mellitus without complications; Z79.82 Long term (current) use of aspirin; Z88.1 Allergy status to other antibiotic agents; Z88.8 Allergy status to other drugs, medicaments and biological substances; Z88.5 Allergy status to narcotic agent; X58.XXXA Exposure to other specified factors, initial encounter
CPT/HCPCS: 93005; 93010; 96372; 99283; A9270; J1170; 72146; 72146-26; 72148; 72148-26

== ENCOUNTER 2021-08-28 08:08 | Day surgery (SDC) | payer MEDICARE ==
[~2021-08-28 08:08] MED LIST: Bupivacaine 0.5% 50 ML MDV ONE
[2021-08-28] MEDS ORDERED: Lactated Ringers 1,000 ML IV SCH (08:30)
[2021-08-28] MEDS ORDERED: Nozin Nasal Sanitizer NASBOTH ONE (08:30)
[2021-08-28] MEDS ORDERED: Propofol 200 MG/20 ML SDV ONE ×3 (08:38→14:17)
[2021-08-28] MEDS ORDERED: Midazolam 1 MG/ML 2 ML SDV ONE (08:38)
[2021-08-28] MEDS ORDERED: fentaNYL 100 MCG/2 ML SDV ONE (08:38)
[2021-08-28] MEDS ORDERED: Bupivacaine 0.5% 30 ML SDV ONE (08:40)
[2021-08-28] MEDS ORDERED: ceFAZolin 1 GM in Premix Bag 1 BAG IV ONE (09:15)
[2021-08-28 15:57] VITALS: BP 164/94; PULSE 70
--- NOTE | 2021-08-31 08:15 | OR ---
DATE OF PROCEDURE: 08/28/2021 SURGEON: Esdras Guy MD PREOPERATIVE DIAGNOSIS: Partial rotator cuff tear, left shoulder, possible full-thickness tear. POSTOPERATIVE DIAGNOSES: 1. Severe partial rotator cuff tear with tendinopathy. 2. Subacromial bursitis with adhesions. PROCEDURES: Arthroscopy, left shoulder with debridement of bursa and repair of rotator cuff tendon. PATTERN LAYOUT WORKER: SYLVIE Ledezma ANESTHESIA: Interscalene block with sedation. INDICATIONS: Ava is a 76-year-old female with a history of persistent and progressive pain in her left shoulder. She is having increasing difficulty with pain, limited range of motion and strength. This is affecting activities of daily living and sleeping, etc. Examination and imaging are consistent with a significant partial-thickness tear and possible full-thickness rotator cuff tear. Most recent examination in the office revealed significant restriction in range of motion. It was felt that she may be developing adhesive capsulitis. Possibility of capsular release manipulation was discussed along with the repair of the rotator. Risks, benefits, and potential complications of the procedure were discussed. DESCRIPTION OF PROCEDURE: After adequate anesthesia was obtained, the patient was placed in lateral decubitus position and the arm was examined under anesthesia with no limitations in forward flexion, internal and external rotation and no evidence of adhesive capsulitis. Left shoulder was then prepped and draped in a sterile fashion and 10 pounds of traction was placed in a shoulder traction unit. A standard posterior portal was established and the scope was introduced inspecting the humeral joint. This revealed no significant degenerative changes of the articular surfaces of the glenoid or humeral head. The labrum was intact. Biceps tendon was intact. Subscapularis showed no evidence of abnormality. Undersurface of the rotator cuff showed the bursal side to be intact, but appeared to be very thin. Spinal needle was placed off the edge of the acromion through the tendon with essentially no resistance at all indicating very thin layer. PDS suture was placed through this as a marking suture for evaluation in the subacromial space. The scope was removed and placed in the subacromial space. A fairly significant amount of bursitis was present. Irregular surface of the bursa over the rotator cuff was also noted. Using a combination of the shaver and radiofrequency ablation, the bursa was resected for visualization of the cuff. Some of the bursa was adherent to the cuff. The location of the marked portion of the cuff with a PDS suture was visualized. After clearing the bursa from the area, the suture was removed and the tendon was now palpated and found to be extremely thin with a significant partial tear on the bursal side and a very thin wall barely remaining on the articular side. A decision was made to proceed with the repair. The edges of the tendon were debrided with a shaver. The superior surface of the tuberosity was also debrided and 2 previously placed sutures from prior repair were identified. These were removed with a grasper. The superior aspect of the tuberosity was lightly decorticated with a amadeo. A punch was used to make a bone tunnel for a Mitek Healix anchor. One was placed more anterior and the 2nd more posterior. All 4 limbs of each of the suture anchors were brought up through the edge of the tendon using the SurgiLighto device. Again, the edge of the tendon was extremely thin and sutures were passed more proximally into slightly more robust tissue. Once all these had been passed, they were then tied down using standard technique. Sutures were then passed through Mitek knotless anchor, which was secured into a tunnel off the lateral edge of the tuberosity. Two knotless anchors were used creating a suture bridge double row repair. The arm was taken through internal and external rotation and repair was stable. The scope was withdrawn. Port sites were closed with 3-0 Mitek and Steri-Strips. Sterile dressing was applied. The patient tolerated procedure well. There were no complications and taken from the operating room in stable condition. Esdras Guy MD /[id number]
== END 2021-08-28 15:59 | disposition home or self-care (01) ==
LOC: JP.SDS 08:08
PROVIDERS: ATTEND Specialist
DX: M75.112 Incomplete rotator cuff tear or rupture of left shoulder, not specified as traumatic (principal); M75.52 Bursitis of left shoulder; N18.9 Chronic kidney disease, unspecified; J44.9 Chronic obstructive pulmonary disease, unspecified; I50.9 Heart failure, unspecified; G47.33 Obstructive sleep apnea (adult) (pediatric); I13.0 Hypertensive heart and chronic kidney disease with heart failure and stage 1 through stage 4 chronic kidney disease, or unspecified chronic kidney disease; E11.22 Type 2 diabetes mellitus with diabetic chronic kidney disease; Z87.891 Personal history of nicotine dependence; Z88.8 Allergy status to other drugs, medicaments and biological substances; Z79.899 Other long term (current) drug therapy
CPT/HCPCS: 29827; 36415; 80053; 85027; A9270; C1713; J0690; J2250; J2704; J3010; J3490; J7120

== ENCOUNTER 2024-06-26 09:44 | Emergency (ER) | payer MEDICARE ==
[2024-06-26 10:23] LABS: BASOPHILS ABSOLUTE AUTO 0.03 K/uL (0.00-0.10); BASOPHILS PERCENT AUTO 0.3 % (0.1-1.3); EOSINOPHILS ABSOLUTE AUTO 0.09 K/uL (0.00-0.40); EOSINOPHILS PERCENT AUTO 0.9 % (0.0-5.4); HEMATOCRIT 34.6 % (34.3-46.0); HEMOGLOBIN 10.9 g/dL (11.2-15.5); IMMATURE GRAN ABSOLUTE AUTO 0.05 K/uL (0.00-0.23); IMMATURE GRAN PERCENT AUTO 0.5 % (0.0-0.7); LYMPHOCYTES ABSOLUTE AUTO 1.53 K/uL (0.8-3.3); LYMPHOCYTES PERCENT AUTO 14.9 % (11.4-47.7); MEAN CORPUSCULAR HEMOGLOBIN 28.4 pg (31.6-35.5); MEAN CORPUSCULAR HGB CONC 31.5 g/dL (31.6-35.5); MEAN CORPUSCULAR VOLUME 90.1 fL (81.4-99.0); MONOCYTES ABSOLUTE AUTO 0.69 K/uL (0.20-0.90); MONOCYTES PERCENT AUTO 6.7 % (3.3-12.6); NEUTROPHILS ABSOLUTE AUTO 7.86 K/uL (1.0-7.6); NEUTROPHILS PERCENT AUTO 76.7 % (40.0-78.1); PLATELET COUNT,PLT 183 K/uL (130-375); RED BLOOD CELL COUNT 3.84 M/uL (3.77-5.24); WHITE BLOOD CELL COUNT,WBC 10.3 K/uL (3.2-11.0)
[2024-06-26 10:36] LABS: A/G RATIO 1.3 (1.2-2.2); ALANINE AMINOTRANSFERASE,ALT 14 U/L (12-78); ALBUMIN 3.5 g/dL (3.4-5.0); ALKALINE PHOSPHATASE 73 U/L (46-116); ANION GAP 7.8 mmol/L (5.0-14.0); ASPARTATE AMNIOTRANSFERASE,AST 11 U/L (15-37); BILIRUBIN TOTAL 0.6 mg/dL (0.2-1.0); BLOOD UREA NITROGEN,BUN 31 mg/dL (7-18); CALCIUM 8.7 mg/dL (8.5-10.1); CARBON DIOXIDE,CO2 30 mmol/L (21-32); CHLORIDE,CL 105 mmol/L (100-108); CREATININE 2.2 mg/dL (0.6-1.0); EST CRCL DRUG DOSING (CG) 14.89 mL/min; ESTIMATED GFR 22 mL/min (>60); GLUCOSE RANDOM 138 mg/dL (74-106); MAGNESIUM 2.1 mg/dL (1.8-2.4); PHOSPHORUS 4.4 mg/dL (2.5-4.9); POTASSIUM,K 4.1 mmol/L (3.6-5.2); PROTEIN TOTAL,TP 6.1 g/dL (6.4-8.2); PROTHROMBIN TIME 10.4 sec (9.2-10.6); PTT,PARTIAL THROMBOPLSTIN TIME 25.1 sec (21.8-27.3); SODIUM,NA 143 mmol/L (140-148); TROPONIN I HIGH SENSITIVITY 7.5 pg/mL (<=60.3)
[2024-06-26] MEDS: Morphine 2 MG/ML SYRINGE IVPUSH ONE ×2 (10:38→13:17)
[2024-06-26 16:43] VITALS: BP 199/66; PULSE 57
== END 2024-06-26 18:37 | disposition home or self-care (01) ==
LOC: JP.ED 09:44
DX: J93.9 Pneumothorax, unspecified (principal); I13.0 Hypertensive heart and chronic kidney disease with heart failure and stage 1 through stage 4 chronic kidney disease, or unspecified chronic kidney disease; I50.9 Heart failure, unspecified; N18.9 Chronic kidney disease, unspecified; E11.9 Type 2 diabetes mellitus without complications; Z86.16 Personal history of COVID-19; Z90.49 Acquired absence of other specified parts of digestive tract; Z90.710 Acquired absence of both cervix and uterus; Z88.1 Allergy status to other antibiotic agents; Z88.8 Allergy status to other drugs, medicaments and biological substances; Z88.6 Allergy status to analgesic agent; Z88.5 Allergy status to narcotic agent; Z79.52 Long term (current) use of systemic steroids; Z79.899 Other long term (current) drug therapy; Z79.891 Long term (current) use of opiate analgesic; Z79.2 Long term (current) use of antibiotics
CPT/HCPCS: 36415; 71046; 71250; 80053; 83735; 84100; 84484; 85025; 85610; 85730; 93005; 96374; 96376; 99285; J2270

== ENCOUNTER 2024-08-07 09:36 | Emergency (ER) | payer MEDICARE ==
[2024-08-07] MEDS ORDERED: Naloxone 0.4 MG/ML SDV IVPUSH PRN (10:00)
[2024-08-07] MEDS: Ondansetron 4 MG/2 ML SDV IVPUSH ONE (10:10)
[2024-08-07] MEDS: HYDROmorphone 0.5 MG/0.5 ML Syringe IVPUSH PRN (10:13)
[2024-08-07] MEDS: Sodium Chloride 0.9% 500 ML IV ONE (10:17)
[2024-08-07 12:36] VITALS: BP 157/59; PULSE 61
== END 2024-08-07 13:11 | disposition home or self-care (01) ==
LOC: JP.ED 09:36
DX: S42.224A 2-part nondisplaced fracture of surgical neck of right humerus, initial encounter for closed fracture (principal); E86.0 Dehydration; I13.0 Hypertensive heart and chronic kidney disease with heart failure and stage 1 through stage 4 chronic kidney disease, or unspecified chronic kidney disease; I50.9 Heart failure, unspecified; N18.9 Chronic kidney disease, unspecified; E11.22 Type 2 diabetes mellitus with diabetic chronic kidney disease; E11.42 Type 2 diabetes mellitus with diabetic polyneuropathy; Z95.5 Presence of coronary angioplasty implant and graft; Z79.899 Other long term (current) drug therapy; Z79.84 Long term (current) use of oral hypoglycemic drugs; Z88.1 Allergy status to other antibiotic agents; Z88.0 Allergy status to penicillin; Z88.5 Allergy status to narcotic agent; Z88.8 Allergy status to other drugs, medicaments and biological substances; Z88.6 Allergy status to analgesic agent; Z87.891 Personal history of nicotine dependence; W06.XXXA Fall from bed, initial encounter
CPT/HCPCS: 73030; 73060; 73070; 96361; 96374; 96375; 96376; 99284; J1171; J2405; J7030

== ENCOUNTER 2025-01-15 13:13 | Emergency (ER) | payer MEDICARE ==
[2025-01-15 13:49] LABS: BASOPHILS ABSOLUTE AUTO 0.03 K/uL (0.00-0.10); BASOPHILS PERCENT AUTO 0.7 % (0.1-1.3); EOSINOPHILS ABSOLUTE AUTO 0.16 K/uL (0.00-0.40); EOSINOPHILS PERCENT AUTO 3.7 % (0.0-5.4); HEMATOCRIT 31.6 % (34.3-46.0); HEMOGLOBIN 10.2 g/dL (11.2-15.5); IMMATURE GRAN PERCENT AUTO 0.5 % (0.0-0.7); LYMPHOCYTES ABSOLUTE AUTO 1.08 K/uL (0.8-3.3); LYMPHOCYTES PERCENT AUTO 25.1 % (11.4-47.7); MEAN CORPUSCULAR HEMOGLOBIN 29.2 pg (31.6-35.5); MEAN CORPUSCULAR HGB CONC 32.3 g/dL (31.6-35.5); MEAN CORPUSCULAR VOLUME 90.5 fL (81.4-99.0); MONOCYTES PERCENT AUTO 9.3 % (3.3-12.6); NEUTROPHILS ABSOLUTE AUTO 2.61 K/uL (1.0-7.6); NEUTROPHILS PERCENT AUTO 60.7 % (40.0-78.1); PLATELET COUNT,PLT 151 K/uL (130-375); RED BLOOD CELL COUNT 3.49 M/uL (3.77-5.24); WHITE BLOOD CELL COUNT,WBC 4.3 K/uL (3.2-11.0)
[2025-01-15 13:50] LABS: IMMATURE GRAN ABSOLUTE AUTO 0.02 K/uL (0.00-0.23)
[2025-01-15 13:58] LABS: PROTHROMBIN TIME 10.7 sec (9.2-10.6)
[2025-01-15 14:06] LABS: A/G RATIO 1.3 (1.2-2.2); ALANINE AMINOTRANSFERASE,ALT 18 U/L (12-78); ALBUMIN 3.2 g/dL (3.4-5.0); ALKALINE PHOSPHATASE 69 U/L (46-116); ASPARTATE AMNIOTRANSFERASE,AST 12 U/L (15-37); BILIRUBIN TOTAL 0.8 mg/dL (0.2-1.0); BLOOD UREA NITROGEN,BUN 38 mg/dL (7-18); CALCIUM 8.7 mg/dL (8.5-10.1); CARBON DIOXIDE,CO2 30 mmol/L (21-32); CHLORIDE,CL 104 mmol/L (100-108); CREATININE 1.7 mg/dL (0.6-1.0); EST CRCL DRUG DOSING (CG) 19.27 mL/min; ESTIMATED GFR 30 mL/min (>60); GLUCOSE RANDOM 149 mg/dL (74-106); POTASSIUM,K 3.1 mmol/L (3.6-5.2); PROTEIN TOTAL,TP 5.6 g/dL (6.4-8.2); SODIUM,NA 144 mmol/L (140-148)
[2025-01-15 14:08] LABS: ANION GAP 13.1 mmol/L (5.0-14.0)
[2025-01-15 14:24] VITALS: BP 140/54; PULSE 51
== END 2025-01-15 16:15 | disposition home or self-care (01) ==
LOC: JP.ED 13:13
DX: R07.89 Other chest pain (principal); I13.0 Hypertensive heart and chronic kidney disease with heart failure and stage 1 through stage 4 chronic kidney disease, or unspecified chronic kidney disease; I50.9 Heart failure, unspecified; E11.40 Type 2 diabetes mellitus with diabetic neuropathy, unspecified; E11.22 Type 2 diabetes mellitus with diabetic chronic kidney disease; J44.9 Chronic obstructive pulmonary disease, unspecified; N18.9 Chronic kidney disease, unspecified; Z88.1 Allergy status to other antibiotic agents; Z88.8 Allergy status to other drugs, medicaments and biological substances; Z88.5 Allergy status to narcotic agent; Z79.899 Other long term (current) drug therapy; Z79.51 Long term (current) use of inhaled steroids; Z79.811 Long term (current) use of aromatase inhibitors; Z90.710 Acquired absence of both cervix and uterus; Z90.49 Acquired absence of other specified parts of digestive tract; Z87.891 Personal history of nicotine dependence
CPT/HCPCS: 36415; 71046; 80053; 84484; 85025; 85610; 93005; 99285; J1642

== ENCOUNTER 2025-04-14 14:07 | Emergency (ER) | payer MEDICARE ==
[2025-04-14] MEDS ORDERED: Naloxone 0.4 MG/ML SDV IVPUSH PRN (15:11)
[2025-04-14 16:03] LABS: BASOPHILS PERCENT AUTO 0.4 % (0.1-1.3); EOSINOPHILS ABSOLUTE AUTO 0.03 K/uL (0.00-0.40); EOSINOPHILS PERCENT AUTO 0.6 % (0.0-5.4); IMMATURE GRAN ABSOLUTE AUTO 0.03 K/uL (0.00-0.23); IMMATURE GRAN PERCENT AUTO 0.6 % (0.0-0.7); LYMPHOCYTES ABSOLUTE AUTO 0.56 K/uL (0.8-3.3); LYMPHOCYTES PERCENT AUTO 10.5 % (11.4-47.7); MONOCYTES ABSOLUTE AUTO 0.27 K/uL (0.20-0.90); MONOCYTES PERCENT AUTO 5.0 % (3.3-12.6); NEUTROPHILS ABSOLUTE AUTO 4.44 K/uL (1.0-7.6); NEUTROPHILS PERCENT AUTO 82.9 % (40.0-78.1); PLATELET COUNT,PLT 129 K/uL (130-375); RED BLOOD CELL COUNT 3.53 M/uL (3.77-5.24); WHITE BLOOD CELL COUNT,WBC 5.4 K/uL (3.2-11.0)
[2025-04-14 16:06] LABS: BASOPHILS ABSOLUTE AUTO 0.02 K/uL (0.00-0.10)
[2025-04-14] MEDS: Ondansetron 4 MG/2 ML SDV IVPUSH ONE (16:15)
[2025-04-14 16:20] LABS: INR 1.0
[2025-04-14 16:27] LABS: TROPONIN I HIGH SENSITIVITY 11.2 pg/mL (<=60.3)
[2025-04-14 16:38] LABS: A/G RATIO 1.4 (1.2-2.2); ALANINE AMINOTRANSFERASE,ALT 19 U/L (12-78); ASPARTATE AMNIOTRANSFERASE,AST 14 U/L (15-37); BILIRUBIN TOTAL 0.8 mg/dL (0.2-1.0); BLOOD UREA NITROGEN,BUN 37 mg/dL (7-18); CARBON DIOXIDE,CO2 32 mmol/L (21-32); CHLORIDE,CL 103 mmol/L (100-108); CREATININE 1.8 mg/dL (0.6-1.0); EST CRCL DRUG DOSING (CG) 18.20 mL/min; ESTIMATED GFR 28 mL/min (>60); GLUCOSE RANDOM 118 mg/dL (74-106); POTASSIUM,K 4.3 mmol/L (3.6-5.2); PROTEIN TOTAL,TP 6.1 g/dL (6.4-8.2); SODIUM,NA 142 mmol/L (140-148)
[2025-04-14 18:21] VITALS: BP 154/58; PULSE 49
[2025-04-14 18:26] LABS: APPEARANCE,URINE CLEAR (CLEAR); GLUCOSE,URINE NEGATIVE (NEGATIVE); OCCULT BLOOD,URINE NEGATIVE (NEGATIVE)
== END 2025-04-14 22:19 | disposition home or self-care (01) ==
LOC: JP.ED 14:07
DX: S42.292A Other displaced fracture of upper end of left humerus, initial encounter for closed fracture (principal); S80.02XA Contusion of left knee, initial encounter; M85.80 Other specified disorders of bone density and structure, unspecified site; I13.0 Hypertensive heart and chronic kidney disease with heart failure and stage 1 through stage 4 chronic kidney disease, or unspecified chronic kidney disease; I50.9 Heart failure, unspecified; N18.9 Chronic kidney disease, unspecified; E11.9 Type 2 diabetes mellitus without complications; Z88.1 Allergy status to other antibiotic agents; Z88.8 Allergy status to other drugs, medicaments and biological substances; Z79.899 Other long term (current) drug therapy; Z90.49 Acquired absence of other specified parts of digestive tract; Z90.710 Acquired absence of both cervix and uterus; W01.0XXA Fall on same level from slipping, tripping and stumbling without subsequent striking against object, initial encounter
CPT/HCPCS: 36415; 70450; 70450-26; 71250; 71250-26; 73030-26-LT; 73030-LT; 73562-26-LT; 73562-LT; 73700-LT; 74176; 74176-26; 76377; 80053; 80307; 81003; 83735; 84484; 85025; 85610; 93005; 96361; 96374; 96375; 96376; 99285-25; J1171; J2405; J7030

== ENCOUNTER 2025-04-23 18:45 | Emergency (ER) | payer MEDICARE ==
[2025-04-23] MEDS: Ketorolac 30 MG/ML SDV IM ONE (19:08)
[2025-04-23 21:22] VITALS: BP 170/77; PULSE 60
== END 2025-04-23 22:17 | disposition home or self-care (01) ==
LOC: JP.ED 18:45
DX: S70.02XA Contusion of left hip, initial encounter (principal); I13.0 Hypertensive heart and chronic kidney disease with heart failure and stage 1 through stage 4 chronic kidney disease, or unspecified chronic kidney disease; I50.9 Heart failure, unspecified; N18.9 Chronic kidney disease, unspecified; Z88.1 Allergy status to other antibiotic agents; Z88.8 Allergy status to other drugs, medicaments and biological substances; Z88.5 Allergy status to narcotic agent; Z90.49 Acquired absence of other specified parts of digestive tract; Z79.899 Other long term (current) drug therapy; W01.198A Fall on same level from slipping, tripping and stumbling with subsequent striking against other object, initial encounter; Y93.89 Activity, other specified
CPT/HCPCS: 72192; 73030; 73502; 73562; 76377; 96372; 96374; 99284; J1885; J1171